=== PATIENT | female | born 1970 | race Caucasian/White ===

== ENCOUNTER → 2016-06-25 | Outpatient (CLI) | payer BC ==
[~2016-06-25] MED LIST: ACET-749 PO; DOCU100C31 PO; MULTTAB58 PO
--- NOTE | 2016-06-25 16:49 | MAMMOGRAPHY REPORT ---
BILATERAL DIGITAL SCREENING MAMMOGRAM TOMOSYNTHESIS WITH CAD: 06/25/2016 CLINICAL HISTORY: Routine screening. Patient has no complaints. TECHNIQUE: Breast tomosynthesis in addition to standard 2D mammography was performed. Current study was also evaluated with a Computer Aided Detection (CAD) system. COMPARISON: Comparison is made to exams dated: 06/13/2015 mammogram, 04/13/2012 mammogram, 06/12/2014 lou mogram, and 02/24/2011 mammogram - [facility]. BREAST COMPOSITION: The tissue of both breasts is heterogeneously dense, which may obscure small ma sses. FINDINGS: There is a 3.8 cm asymmetry seen within the right lateral breast on the cc view, with pos sible associated architectural distortion seen on the tomosynthesis images. This is thought to proj ect superiorly on the MLO view. Recommend spot compression tomosynthesis views and possible breast ultrasound for further evaluation. The remainder of both breasts are stable compared to prior exams, without suspicious masses, calcifi cations, or areas of architectural distortion noted. IMPRESSION: ACR BI-RADS CATEGORY 0: INCOMPLETE EVALUATION: NEED ADDITIONAL IMAGING EVALUATION Right lateral breast asymmetry with possible associated architectural distortion, for which addition al imaging evaluation is recommended. The patient will be called to schedule an appointment. Approximately 10% of breast cancers are not detected with mammography. A negative mammographic repor t should not delay biopsy if a clinically suggestive mass is present. Estefani Mccray M.D. /:06/25/2016 16:20:15 Tig Welder: Comfort LARIOS(Brigette)(Gregorio), [facility] letter sent: Addl Imaging 0 BI-RADS Code: ACR BI-RADS Category 0: Incomplete Evaluation: Need Additional Imaging Evaluation
== END | disposition home or self-care (01) ==
LOC: C.MAMM 09:11
PROVIDERS: ATTEND Obstetrics & Gynecology
DX: Z12.31 Encounter for screening mammogram for malignant neoplasm of breast (principal); R92.8 Other abnormal and inconclusive findings on diagnostic imaging of breast

== ENCOUNTER → 2016-07-06 | Outpatient (CLI) | payer BC ==
--- NOTE | 2016-07-06 14:28 | MAMMOGRAPHY REPORT ---
UNILATERAL RIGHT DIGITAL DIAGNOSTIC MAMMOGRAM TOMOSYNTHESIS AND TARGETED RIGHT ULTRASOUND: 07/06/2016 CLINICAL HISTORY: 46-year-old woman called back from screening mammography for a lateral right breas t asymmetry with possible associated architectural distortion. TECHNIQUE: Spot compression CC and MLO tomosynthesis images with reconstructed C-view of the right breast were obtained. COMPARISON: Comparison is made to exams dated: 06/25/2016 mammogram, 06/13/2015 mammogram, 06/12/2014 ma mmogram, 04/13/2012 mammogram, 02/24/2011 ultrasound - [facility], and 01/16/2009. BREAST COMPOSITION: The tissue of the right breast is heterogeneously dense, which may obscure smal l masses. FINDINGS: Spot compression tomosynthesis views of the right upper outer quadrant demonstrate persist ence of a dominant oval circumscribed 12 mm mass in the upper outer middle one third of the breast. Numerous other smaller partially circumscribed masses are identified on the tomosynthesis images. There is no definite persistent architectural distortion. No suspicious cluster of microcalcificati on. Further evaluation with ultrasound was performed. Real-time high-resolution sonographic evaluation was performed in the right upper outer quadrant. I ncidental note is made of a morphologically normal axillary tail lymph node in the 9:30 right breast , 8 cm from the nipple, measuring 6.7 mm in diameter, with a thin cortex measuring 0.8 mm. There is a cluster/patch of focal fibrocystic changes including 2 numerous to count anechoic benign simple c ysts and a few hypoechoic cysts that likely contain internal debris. The dominant anechoic cyst in this area measures 11 mm and likely correlates with the dominant circumscribed mammographic mass. T hese findings are compatible with benign fibrocystic changes. No architectural distortion is apprec iated in this area on ultrasound. There is no evidence of a suspicious solid or shadowing mass. IMPRESSION: ACR-BI-RADS CATEGORY 3: PROBABLY BENIGN, TARGETED ULTRASOUND ACR-BI-RADS CATEGORY 3: AR OBABLY BENIGN There is no definite persistent architectural distortion in the right lateral breast, correlating wi th the findings seen on screening mammography. There are numerous partially circumscribed masses co mpatible with fibrocystic changes seen on ultrasound. A short interval follow-up diagnostic mammogr am and possible ultrasound in the right breast is recommended to ensure stability in 6 months. These results and recommendations were discussed with the patient at the time of the exam. Approximately 10% of breast cancers are not detected with mammography. A negative mammographic repor t should not delay biopsy if a clinically suggestive mass is present. Sommer Dos Santos M.D. ay/:07/06/2016 12:30:38 Fundraising Assistant: Aissatou SCHULZ)(Gregorio), [facility] letter sent: Follow Up Recommended 3 BI-RADS Code: ACR-BI-RADS Category 3: Probably Benign Ultrasound BI-RADS: ACR-BI-RADS Category 3: P robably Benign
== END | disposition home or self-care (01) ==
LOC: C.MAMM 10:30
PROVIDERS: ATTEND Obstetrics & Gynecology
DX: R92.2 Inconclusive mammogram (principal); N63 Unspecified lump in breast

== ENCOUNTER → 2017-01-04 | Outpatient (CLI) | payer BC ==
--- NOTE | 2017-01-04 13:33 | MAMMOGRAPHY REPORT ---
UNILATERAL RIGHT DIGITAL DIAGNOSTIC MAMMOGRAM TOMOSYNTHESIS WITH CAD AND TARGETED RIGHT ULTRASOUND: CLINICAL HISTORY: 46-year-old woman presents for follow-up in the right breast. A prior screening ma mmogram demonstrated a questionable area of architectural distortion in the approximate 9:00 breast w hich did not definitely persist with supplemental mammographic views and numerous clustered cysts are identified in that area on ultrasound. TECHNIQUE: Right breast tomosynthesis in addition to standard 2D mammography was performed. Current study was also evaluated with a Computer Aided Detection (CAD) system. COMPARISON: Comparison is made to exams dated: 07/06/2016 mammogram, 07/06/2016 ultrasound, 06/25/2016 mammogram, 06/13/2015 mammogram, 06/12/2014 mammogram, and 04/13/2012 mammogram - [facility]. BREAST COMPOSITION: The tissue of the right breast is heterogeneously dense, which may obscure small masses. FINDINGS: The parenchymal pattern of the right breast is similar to prior mammograms. The tomosynthe sis images demonstrate the previously observed questionable area of distortion with interspersed part ially circumscribed round masses within, in the lateral, middle to posterior breast. It does not lorri ear increasingly distorted. There are no associated microcalcifications. No other areas of distorti on, suspicious mass or developing asymmetry is seen in the visualized right breast. Repeat targeted ultrasound was performed in the upper outer quadrant of the right breast, approximate ly 9:00, 9:30 and 10:00 axes. Innumerable round anechoic and hypoechoic cysts are again identified. No focal hypoechoic shadowing mass or area of architectural distortion is appreciated in real-time s sonia. The questionable distortion seen mammographically may be due to the mass effect from the mu ltiple clumped cysts in this one location. Nevertheless, another short interval follow-up right diag nostic tomosynthesis mammogram and possible repeat ultrasound is recommended to ensure longer stabili ty. IMPRESSION: ACR-BI-RADS CATEGORY 3: PROBABLY BENIGN, TARGETED ULTRASOUND ACR-BI-RADS CATEGORY 3: PRO BABLY BENIGN Stable mammographic appearance of the right breast including afocal area of multiple partially circu mscribed masses with questionable architectural distortion in the 9:00 middle to posterior breast, wi th innumerable benign cysts clustered within the 9:00 and 10:00 axes on ultrasound. These findings m ost likely represent focal fibrocystic changes and the questionable mammographic distortion is likely due to the mass effect from the multiple cysts in one location. Nevertheless, longer stability is n eeded and repeat right diagnostic tomosynthesis mammography and possible ultrasound is recommended in 6 months. Annual left mammography will also be due at that time. These results and recommendations were discussed with the patient at the time of the exam. Approximately 10% of breast cancers are not detected with mammography. A negative mammographic report should not delay biopsy if a clinically suggestive mass is present. Sommer Dos Santos M.D. ay/:01/04/2017 12:46:30 Staff Physical Therapy Assistant: Sofía Copeland, [facility] letter sent: Follow Up Recommended 3 BI-RADS Code: ACR-BI-RADS Category 3: Probably Benign Ultrasound BI-RADS: ACR-BI-RADS Category 3: Pr obably Benign
== END | disposition home or self-care (01) ==
LOC: C.MAMM 09:51
PROVIDERS: ATTEND Obstetrics & Gynecology
DX: R92.8 Other abnormal and inconclusive findings on diagnostic imaging of breast (principal); N63 Unspecified lump in breast

== ENCOUNTER → 2017-06-28 | Outpatient (CLI) | payer BC ==
--- NOTE | 2017-06-29 14:58 | MAMMOGRAPHY REPORT ---
BILATERAL DIGITAL SCREENING MAMMOGRAM TOMOSYNTHESIS WITH CAD: 06/28/2017 CLINICAL HISTORY: Routine screening. Patient has no complaints. TECHNIQUE: Breast tomosynthesis in addition to standard 2D mammography was performed. Current study was also evaluated with a Computer Aided Detection (CAD) system. COMPARISON: Comparison is made to exams dated: 01/04/2017 mammogram, 06/25/2016 mammogram, 06/13/2015 ma mmogram, 06/12/2014 mammogram, 04/13/2012 mammogram, and 06/17/2010 mammogram - [facility] BREAST COMPOSITION: The tissue of both breasts is heterogeneously dense, which may obscure small mas ses. FINDINGS: No suspicious masses, calcifications, or areas of architectural distortion are noted in ei ther breast. There has been no significant interval change compared to prior exams. There is a stabl e focal asymmetry in the right upper outer quadrant. Scattered bilateral benign-appearing calcificat ions are not significantly changed. IMPRESSION: ACR BI-RADS CATEGORY 2: BENIGN There is no mammographic evidence of malignancy. A 1 year screening mammogram is recommended. The pa tient will receive written notification of the results. Approximately 10% of breast cancers are not detected with mammography. A negative mammographic report should not delay biopsy if a clinically suggestive mass is present. Estefani Mccray M.D. /:06/28/2017 14:25:00 Roof Foreman: Sofía LARIOS(Brigette)(M), [facility] letter sent: Normal 1/2 BI-RADS Code: ACR BI-RADS Category 2: Benign
== END | disposition home or self-care (01) ==
LOC: C.MAMM 09:39
PROVIDERS: ATTEND Obstetrics & Gynecology
DX: Z12.31 Encounter for screening mammogram for malignant neoplasm of breast (principal)